=== PATIENT | female | born 1990 | race American Indian/Alaskan Native ===

== ENCOUNTER 2016-08-28 11:35 | Emergency (ER) | payer MEDICAID ==
[2016-08-28 12:41] LABS: Basophils % (Auto) 0.6 % (0.0-1.8); Eosinophils % (Auto) 8.7 % (0.0-4.3); Hemoglobin 12.7 gm/dl (10.1-14.3); Mean Corpuscular HGB Conc 32 % (30-34); Mean Corpuscular Volume 76 fl (79-97); Platelet Count 266 K/mm3 (140-440); Red Blood Count 5.28 M/mm3 (3.65-5.03); Red Cell Distribution Width 15.4 % (13.2-15.2); White Blood Count 5.7 K/mm3 (4.5-11.0)
[2016-08-28 12:52] LABS: Bilirubin,Urine NEG (Negative); Blood,Urine SM (Negative); Ketones,Urine NEG (Negative); Leukocyte Esterase,Urine NEG (Negative); Mucus,Urine FEW /HPF; Nitrite,Urine NEG (Negative); Protein,Urine <15 mg/dL mg/dL (Negative); Urobilinogen,Urine < 2.0 mg/dL (<2.0)
[2016-08-28 12:53] LABS: Alanine Aminotransferase 36 units/L (7-56); Albumin/Globulin Ratio 1.1 %; Alkaline Phosphatase 79 units/L (35-129); Anion Gap 17 mmol/L; BUN/Creatinine Ratio 14.28; Bilirubin,Total 0.2 mg/dL (0.1-1.2); Blood Urea Nitrogen 10 mg/dL (7-17); Calcium 8.4 mg/dL (8.4-10.2); Carbon Dioxide 22 mmol/L (22-30); Chloride 105.1 mmol/L (98-107); Glucose 111 mg/dL (65-100); Potassium 3.5 mmol/L (3.6-5.0); Sodium 141 mmol/L (137-145); Total Protein 7.6 g/dL (6.3-8.2)
[2016-08-28 12:59] LABS: Mean Corpuscular Hemoglobin 24 pg (28-32)
--- NOTE | 2016-08-28 13:36 | XRay Report ---
Single view chest: Compared to 04/14/14. History: Asthma. Findings: Normal cardiomediastinal silhouette. Trachea is midline. No consolidation, pneumothorax or pleural effusion. Impression: No acute cardiopulmonary findings. Impression:
[2016-08-28] MEDS ORDERED: PROVENTIL IH ONE (14:07)
--- NOTE | 2016-08-28 14:07 | Emergency Department Report ---
ED General Adult HPI - General Chief complaint: Adult Asthma Stated complaint: ASTHMA ATTACK Time Seen by Provider: 08/28/16 13:54 Source: family, EMS (ems notes not available at time of chart dictation. Verbal report received from EMS.), RN notes reviewed Mode of arrival: Stretcher Limitations: No Limitations - History of Present Illness Initial comments: This is a 25-year-old female. She is previously unknown to me. Her identity access management architect is Dr. Martinez. She has a past medical history of asthma. She presents to the ER with asthma exacerbation. EMS gave the patient albuterol, steroids, magnesium sulfate. Patient reports taking steroids every other day. She does not recall the dose of steroid. She is not having any pain at this time. There is no leg pain. There is no leg swelling. No recent trips greater than 4 hours. No recent hospital admissions. Patient does not take control tablets. She reports that she feels markedly improved at this time. Triggers for asthma include cold weather, change of seasons, increasing pollen count. She reports her symptoms are markedly improved with administration of albuterol, steroids, magnesium. -: Gradual Severity scale (0 -10): 5 Consistency: now resolved Improves with: medication Associated Symptoms: shortness of breath - Related Data Home Medications Medication Instructions Recorded Confirmed Last Taken Prednisone [Prednisone 10 mg 10 mg PO QDAY 08/28/16 08/28/16 1 Day Ago (6-Day Pack, 21 Tabs)] Previous Rx's Medication Instructions Recorded Last Taken Type Pnv95/Ferrous Fumarate/FA 1 each PO QDAY #90 tablet 10/16/13 06/07/14 Rx [ Vitamins] one ALBUTEROL Inhaler [ProAir HFA 2 puff IH QID PRN #1 inhalation 04/09/14 1 Day Ago Rx Inhaler] ALBUTEROL NEB's [Proventil 0.083% 2.5 mg IH TID PRN #1 box 04/09/14 08/28/16 Rx NEBS] Albuterol Sulfate [Albuterol 0.63%] 0.63 mg IH TID PRN #1 box 04/15/14 08/28/16 Rx Ipratropium/Albuterol Sulfate 3 ml IH TID PRN #1 box 04/15/14 1 Day Ago Rx [Iprat-Albut 0.5-3(2.5) mg/3 ml] Albuterol Sulfate [Albuterol 0.63% 0.63 mg IH Q4HR PRN #2 ml 08/28/16 Unknown Rx NEBS] Albuterol Sulfate [Proair 90 mcg IH Q4HR PRN #2 aer.pow.ba 08/28/16 Unknown Rx Respiclick] Ipratropium [place] [Atrovent Hfa] 12.9 gm IH Q4HR #2 hfa.aer.ad 08/28/16 Unknown Rx Ipratropium [Atrovent NEB] 0.5 mg IH Q4HR #2 ml 08/28/16 Unknown Rx Nebulizer/Compressor [Innospire 1 each MC PRN PRN #1 each 08/28/16 Unknown Rx Deluxe Jacki Neb] methylPREDNISolone [Medrol] 4 mg PO QDAY #1 tab.ds.pk 08/28/16 Unknown Rx Allergies Allergy/AdvReac Type Severity Reaction Status Date / Time water melon Allergy Itching Uncoded 05/02/14 17:15 ED Review of Systems ROS: Stated complaint: ASTHMA ATTACK Other details as noted in HPI Constitutional: denies: malaise Eyes: denies: vision change ENT: congestion. denies: epistaxis Respiratory: shortness of breath, wheezing Cardiovascular: dyspnea on exertion Gastrointestinal: denies: abdominal pain, nausea, diarrhea Genitourinary: denies: urgency, dysuria, discharge Musculoskeletal: denies: back pain, joint swelling, arthralgia Skin: denies: rash, lesions Neurological: denies: headache, weakness, paresthesias Psychiatric: denies: anxiety, depression ED Past Medical Hx - Past Medical History Previous Medical History?: Yes Hx Hypertension: No Hx Congestive Heart Failure: No Hx Diabetes: No Hx Deep Vein Thrombosis: No Hx Renal Disease: No Hx Sickle Cell Disease: No Hx Seizures: No Hx Asthma: Yes Hx COPD: No Hx HIV: No Additional medical history: 4 mos , constipation x1 month - Social History Smoking Status: Never Smoker Substance Use Type: None - Medications Home Medications: Home Medications Medication Instructions Recorded Confirmed Last Taken Type Pnv95/Ferrous Fumarate/FA 1 each PO QDAY #90 tablet 10/16/13 08/28/16 06/07/14 Rx [ Vitamins] one ALBUTEROL Inhaler [ProAir HFA 2 puff IH QID PRN #1 inhalation 04/09/14 08/28/16 1 Day Ago Rx Inhaler] ALBUTEROL NEB's [Proventil 0.083% 2.5 mg IH TID PRN #1 box 04/09/14 08/28/1606/15 Rx NEBS] Albuterol Sulfate [Albuterol 0.63%] 0.63 mg IH TID PRN #1 box 04/15/14 08/28/16 08/28/16 Rx Ipratropium/Albuterol Sulfate 3 ml IH TID PRN #1 box 04/15/14 08/28/16 1 Day Ago Rx [Iprat-Albut 0.5-3(2.5) mg/3 ml] Albuterol Sulfate [Albuterol 0.63% 0.63 mg IH Q4HR PRN #2 ml 08/28/16 Unknown Rx NEBS] Albuterol Sulfate [Proair 90 mcg IH Q4HR PRN #2 aer.pow.ba 08/28/16 Unknown Rx Respiclick] Ipratropium [place] [Atrovent Hfa] 12.9 gm IH Q4HR #2 hfa.aer.ad 08/28/16 Unknown Rx Ipratropium [Atrovent NEB] 0.5 mg IH Q4HR #2 ml 08/28/16 Unknown Rx Nebulizer/Compressor [Innospire 1 each MC PRN PRN #1 each 08/28/16 Unknown Rx Deluxe Jacki Neb] Prednisone [Prednisone 10 mg 10 mg PO QDAY 08/28/16 08/28/16 1 Day Ago History (6-Day Pack, 21 Tabs)] methylPREDNISolone [Medrol] 4 mg PO QDAY #1 tab.ds.pk 08/28/16 Unknown Rx ED Physical Exam - General Limitations: No Limitations General appearance: alert, in no apparent distress - Head Head exam: Present: atraumatic, normocephalic - Eye Eye exam: Present: normal appearance, EOMI. Absent: nystagmus - ENT ENT exam: Present: normal exam, normal orophraynx, mucous membranes moist, normal external ear exam - Neck Neck exam: Present: normal inspection, full ROM. Absent: tenderness, meningismus - Respiratory Respiratory exam: Present: wheezes. Absent: respiratory distress, chest wall tenderness - Cardiovascular Cardiovascular Exam: Present: normal rhythm, tachycardia, normal heart sounds. Absent: systolic murmur, diastolic murmur, rubs, gallop - GI/Abdominal GI/Abdominal exam: Present: soft, normal bowel sounds. Absent: distended, tenderness, guarding, rebound, rigid, pulsatile mass - Extremities Exam Extremities exam: Present: normal inspection, full ROM, normal capillary refill. Absent: tenderness, pedal edema, joint swelling, calf tenderness - Back Exam Back exam: Present: normal inspection, full ROM. Absent: tenderness, CVA tenderness (R), CVA tenderness (L), muscle spasm, paraspinal tenderness, vertebral tenderness - Neurological Exam Neurological exam: Present: alert, oriented X3, normal gait, other (Extraocular movements intact. Tongue midline. No facial droop. Facial sensation intact to light touch in the V1, V2, V3 distribution bilaterally. 5 and 5 strength in 4 extremities.. Sensation is intact to light touch in 4 extremities.). Absent : motor sensory deficit - Psychiatric Psychiatric exam: Present: normal affect, normal mood - Skin Skin exam: Present: warm, dry, intact, normal color. Absent: rash ED Course Vital Signs 08/28/16 11:37 Temperature 97.9 F Pulse Rate 124 H Respiratory 24 Rate Blood Pressure 146/93 Blood Pressure 146/93 [Right] O2 Sat by Pulse 99 Oximetry - Reevaluation(s) Reevaluation #1: 08/28/16 15:20 differential diagnosis: Asthma exacerbation, bronchitis, pneumonia assessment anD plan: 25-year-old female, with no pulmonary embolus or DVT risk factors, low risk by well's criteria, known history of chronic asthma, on chronic steroid therapy, who presents with her typical asthma exacerbation. She is afebrile with reassuring vital signs. When I'm interviewing the patient , she is texting on a cellular phone, and she is able to ambulate around the ER while talking to me simultaneously without desaturation. She felt markedly improved after appropriate asthma therapy. She reports that she has follow-up with her identity access management architect this Tuesday. She will be discharged on a Medrol Dosepak ED Medical Decision Making - Lab Data Result diagrams: 08/28/16 12:18 08/28/16 12:18 Vital Signs 08/28/16 08/28/16 11:37 15:22 Temperature 97.9 F 98.6 F Pulse Rate 124 H 94 H Respiratory 24 20 Rate Blood Pressure 146/93 Blood Pressure 146/93 141/88 [Right] O2 Sat by Pulse 99 99 Oximetry Lab Results 08/28/16 08/28/16 08/28/16 Range/Units 12:17 12:18 12:18 WBC 5.7 (4.5-11.0) K/mm3 RBC 5.28 H (3.65-5.03) M/mm3 Hgb 12.7 (10.1-14.3) gm/dl Hct 40.0 (30.3-42.9) % MCV 76 L (79-97) fl MCH 24 L (28-32) pg MCHC 32 (30-34) % RDW 15.4 H (13.2-15.2) % Plt Count 266 (140-440) K/mm3 Lymph % (Auto) 36.9 H (13.4-35.0) % [place] % (Auto) 6.7 (0.0-7.3) % Eos % (Auto) 8.7 H (0.0-4.3) % Baso % (Auto) 0.6 (0.0-1.8) % Lymph # 2.1 (1.2-5.4) K/mm3 [place] # 0.4 (0.0-0.8) K/mm3 Eos # 0.5 H (0.0-0.4) K/mm3 Baso # 0.0 (0.0-0.1) K/mm3 Seg Neutrophils % 47.1 (40.0-70.0) % Seg Neutrophils # 2.7 (1.8-7.7) K/mm3 Sodium 141 (137-145) mmol/L Potassium 3.5 L (3.6-5.0) mmol/L Chloride 105.1 (98-107) mmol/L Carbon Dioxide 22 (22-30) mmol/L Anion Gap 17 mmol/L BUN 10 (7-17) mg/dL Creatinine 0.7 (0.7-1.2) mg/dL Estimated GFR > 60 ml/min BUN/Creatinine Ratio 14.28 % Glucose 111 H (65-100) mg/dL Calcium 8.4 (8.4-10.2) mg/dL Total Bilirubin 0.2 (0.1-1.2) mg/dL AST 22 (5-40) units/L ALT 36 (7-56) units/L Alkaline Phosphatase 79 (35-129) units/L Total Protein 7.6 (6.3-8.2) g/dL Albumin 4.0 (3.9-5) g/dL Albumin/Globulin Ratio 1.1 % Urine Color Yellow (Yellow) Urine Turbidity Slightly-cloudy (Clear) Urine pH 5.0 (5.0-7.0) Ur Specific [place] 1.011 (1.003-1.030) Urine Protein <15 mg/dl (Negative) mg/dL Urine Glucose (UA) Neg (Negative) mg/dL Urine Ketones Neg (Negative) mg/dL Urine Blood Sm (Negative) Urine Nitrite Neg (Negative) Urine Bilirubin Neg (Negative) Urine Urobilinogen < 2.0 (<2.0) mg/dL Ur Leukocyte Esterase Neg (Negative) Urine WBC (Auto) 1.0 (0.0-6.0) /HPF Urine RBC (Auto) 1.0 (0.0-6.0) /HPF U Epithel Cells (Auto) 16.0 H (0-13.0) /HPF Urine Mucus Few /HPF Urine HCG, Qual Negative (Negative) - EKG Data -: EKG Interpreted by In EKG shows normal: sinus rhythm, axis, QRS complexes, ST-T waves Rate: tachycardia - EKG Data 08/28/16 15:23 sinus tachycardia, 106 bpm, normal axis, not consistent with STEMI, unremarkable EKG. QTC prolonged at 472 ms. - Radiology Data Radiology results: report reviewed, image reviewed X-ray of the chest is negative for acute disease. Critical care attestation.: If time is entered above; I have spent that time in minutes in the direct care of this critically ill patient, excluding procedure time. ED Disposition Clinical Impression: Asthma exacerbation Disposition: DISCHARGED TO HOME OR SELFCARE Is pt being admited?: No Does the pt Need Aspirin: No Condition: Stable Instructions: Asthma (ED) Additional Instructions: Used the albuterol and Atrovent every 4-6 hours for the next 5 days. Take the steroid blister pack as directed. Follow up with her identity access management architect on Tuesday as scheduled. Return to the ER right away with severe shortness of breath, intractable nausea or vomiting, fevers or chills, inability to tolerate liquid feeds, worsening shortness of breath, new, worsening or different symptoms. Referrals: PRIMARY CARE,MD [Primary Care Provider] - 3-5 Days DAMARIS DOMINIQUE MD [Staff Physician] - 3-5 Days
[2016-08-28 15:23] VITALS: BP 141/88
== END 2016-08-28 15:35 | disposition home or self-care (01) ==
LOC: ED 11:35
DX: J45.901 Unspecified asthma with (acute) exacerbation (principal); Z91.018 Allergy to other foods
CPT/HCPCS: 36415; 71010; 80053; 81001; 81025; 85025; 93005; 93010

== ENCOUNTER 2016-11-09 21:09 | Emergency (ER) | payer MEDICAID ==
[2016-11-09 21:35] VITALS: BP 130/86
== END 2016-11-09 23:31 | disposition left against medical advice (07) ==
LOC: ED 21:09
DX: J02.9 Acute pharyngitis, unspecified (principal); R05 Cough; J45.909 Unspecified asthma, uncomplicated; Z91.018 Allergy to other foods; Z53.21 Procedure and treatment not carried out due to patient leaving prior to being seen by health care provider

== ENCOUNTER 2017-03-26 21:55 | Outpatient (CLI) | payer MEDICAID ==
[2017-03-26] MEDS ORDERED: LACTATED RINGERS 500 ML IV ONE (22:06)
[2017-03-26 23:01] LABS: Bacteria,Urine 1+ /HPF (Negative); Bilirubin,Urine SM (Negative); Blood,Urine NEG (Negative); Ketones,Urine TR mg/dL (Negative); Leukocyte Esterase,Urine NEG (Negative); Mucus,Urine 3+ /HPF; Nitrite,Urine NEG (Negative)
[2017-03-26 23:15] VITALS: BP 124/73
--- NOTE | 2017-03-27 09:22 | Ultrasound Report ---
OB sonogram: History: Cervical alignment. Gestation: Single Position: Breech Amniotic Fluid: MEMO = normal cm Placenta: Anterior Placental Grade: 0 Heart Rate: 160 BPM Cervical length: 3.7 cm (Normal > 3 cm) It is too early for a anatomical survey BPD: 5.1 cm = 21 w 3 d HC: 19.1 cm = 21 w 3 d AC: 519 cm = 21 w 0 d FL: 3.4 cm = 20 w 5 d HC/AC Ratio: 1.2 Estimated Weight: 413 grams US Gest. Age = 21 w 0 d EDC: 08/06/17
== END 2017-03-26 23:27 | disposition home or self-care (01) ==
LOC: TRG 21:55
PROVIDERS: ATTEND Obstetrics & Gynecology
DX: O32.1XX0 Maternal care for breech presentation, not applicable or unspecified (principal); O47.02 False labor before 37 completed weeks of gestation, second trimester; Z3A.21 21 weeks gestation of pregnancy
CPT/HCPCS: 76816; 81001

== ENCOUNTER 2017-04-23 19:21 | Emergency (ER) | payer MEDICAID ==
[2017-04-23 19:59] VITALS: BP 125/92
[2017-04-23] MEDS ORDERED: DUONEB *Not for PRN Use IH ONE (20:03)
[2017-04-23] MEDS ORDERED: PROVENTIL IH ONE (20:13)
--- NOTE | 2017-04-23 20:16 | Emergency Department Report ---
Chief Complaint: Adult Asthma Stated Complaint: DIFFICULTY IN BREATHING - HPI History of Present Illness: 26-year-old female past medical history asthma, approximately 6 months presents with complaint of shortness of breath and wheezing since earlier today. Patient speaking in broken sentences states she feels short of breath. Denies chest pain or palpitations at this time. States she used her nebulizer at home with minimal relief of her asthma. - ROS Review of Systems: 6 months , currently wheezing history of asthma exacerbations - Exam Vital Signs: Vital Signs 04/23/17 19:55 Temperature 99.3 F Pulse Rate 111 H Respiratory 18 Rate Blood Pressure 125/92 O2 Sat by Pulse 98 Oximetry Physical Exam: Active wheezing bilateral lung jones, gravid abdomen, awake alert 9 to 3 MSE screening note: Focused history and physical exam performed. Due to findings the following was ordered: Screening Assessment/Plan/Differential Dx: Acute asthma exacerbation, wheezing 1- This initial assessment/diagnostic orders/clinical plan/ treatment(s) is/are subject to change based on pt's health status, clinical progression and re- assessment by fellow clinical providers in the ED. Further treatment and workup at subsequent clinical provers discretion. Patient/guardians urged not to elope from ED as their condition may be serious if not clinically assessed and managed. 2-albuterol nebulizer, DuoNeb, IV Solu-Medrol ( can be used in women, cat C, this clinical scenario calls for steroids as pt is heavily wheezing) 3-I briefly discussed case with Dr. Go, pt uptriaged to main ED, resp therapist called for neb tx ED Disposition for MSE Condition: Stable
--- NOTE | 2017-04-23 20:41 | Emergency Department Report ---
ED Shortness of Breath HPI - General Chief Complaint: Adult Asthma Stated Complaint: DIFFICULTY IN BREATHING Time Seen by Provider: 04/23/17 20:28 Source: patient Mode of arrival: Ambulatory Limitations: No Limitations - History of Present Illness Initial Comments: Patient is a 26-year-old female with a past medical history of asthma that presents to the ER with complaints of shortness of breath and cough 3 days with his worsening for the last 24 hours. Patient states that she states as of today she is not getting any relief from her nebulizer at home. Patient is currently 25 weeks. Patient states every winter she gets a bad asthma flare of that requires ER care and hospitalization. She states that her last flareup last winter required multiple nebulizers and magnesium. Patient denies fever and chills and chest pain. MD Complaint: shortness of breath, cough, "asthma attack" -: Gradual, days(s) Severity: severe Consistency: constant Improves With: nothing Worsens With: lying flat, exertion, movement, coughing, inspiration Known History Of: asthma Associated Symptoms: cough, sputum production Treatments Prior to Arrival: bronchodilator - Related Data Home Oxygen Therapy: No Home Medications Medication Instructions Recorded Confirmed Last Taken Prednisone [Prednisone 10 mg 10 mg PO QDAY 08/28/16 08/28/16 1 Day Ago (6-Day Pack, 21 Tabs)] ~08/27/16 Previous Rx's Medication Instructions Recorded Last Taken Type Pnv95/Ferrous Fumarate/FA 1 each PO QDAY #90 tablet 10/16/13 06/07/14 Rx [ Vitamins] one ALBUTEROL Inhaler [ProAir HFA 2 puff IH QID PRN #1 inhalation 04/09/14 1 Day Ago Rx Inhaler] ~08/27/16 ALBUTEROL NEB's [Proventil 0.083% 2.5 mg IH TID PRN #1 box 04/09/14 08/28/16 Rx NEBS] Albuterol Sulfate [Albuterol 0.63%] 0.63 mg IH TID PRN #1 box 04/15/14 08/28/16 Rx Ipratropium/Albuterol Sulfate 3 ml IH TID PRN #1 box 04/15/14 1 Day Ago Rx [Iprat-Albut 0.5-3(2.5) mg/3 ml] ~08/27/16 Albuterol Sulfate [Albuterol 0.63% 0.63 mg IH Q4HR PRN #2 ml 08/28/16 Unknown Rx NEBS] Albuterol Sulfate [Proair 90 mcg IH Q4HR PRN #2 aer.pow.ba 08/28/16 Unknown Rx Respiclick] Ipratropium [place] [Atrovent Hfa] 12.9 gm IH Q4HR #2 hfa.aer.ad 08/28/16 Unknown Rx Ipratropium [Atrovent NEB] 0.5 mg IH Q4HR #2 ml 08/28/16 Unknown Rx Nebulizer and Compressor 1 each MC PRN PRN #1 each 08/28/16 Unknown Rx [Innospire Deluxe Jacki Neb] methylPREDNISolone [Medrol] 4 mg PO QDAY #1 tab.ds.pk 08/28/16 Unknown Rx Allergies Allergy/AdvReac Type Severity Reaction Status Date / Time water melon Allergy Itching Uncoded 05/02/14 17:15 ED Review of Systems ROS: Stated complaint: DIFFICULTY IN BREATHING Other details as noted in HPI Comment: All other systems reviewed and negative Constitutional: no symptoms reported Eyes: as per HPI ENT: as per HPI Respiratory: cough, shortness of breath, SOB with exertion, SOB at rest, wheezing Cardiovascular: as per HPI Endocrine: no symptoms reported Gastrointestinal: as per HPI Genitourinary: as per HPI Musculoskeletal: as per HPI Skin: as per HPI Neurological: as per HPI Psychiatric: as per HPI Hematological/Lymphatic: as per HPI ED Past Medical Hx - Past Medical History Hx Hypertension: No Hx Congestive Heart Failure: No Hx Diabetes: Yes (GDM 2010, Diet controlled) Hx Deep Vein Thrombosis: No Hx Renal Disease: No Hx Sickle Cell Disease: No Hx Seizures: No Hx Asthma: Yes (PRN, Last use this a.m.) Hx COPD: No Hx HIV: No Additional medical history: 4 mos , constipation x1 month - Social History Smoking Status: Never Smoker Substance Use Type: None - Medications Home Medications: Home Medications Medication Instructions Recorded Confirmed Last Taken Type Pnv95/Ferrous Fumarate/FA 1 each PO QDAY #90 tablet 10/16/13 08/28/16 06/07/14 Rx [ Vitamins] one ALBUTEROL Inhaler [ProAir HFA 2 puff IH QID PRN #1 inhalation 04/09/14 08/28/16 1 Day Ago Rx Inhaler] ~08/27/16 ALBUTEROL NEB's [Proventil 0.083% 2.5 mg IH TID PRN #1 box 04/09/14 08/28/1606/15 Rx NEBS] Albuterol Sulfate [Albuterol 0.63%] 0.63 mg IH TID PRN #1 box 04/15/14 08/28/16 08/28/16 Rx Ipratropium/Albuterol Sulfate 3 ml IH TID PRN #1 box 04/15/14 08/28/16 1 Day Ago Rx [Iprat-Albut 0.5-3(2.5) mg/3 ml] ~08/27/16 Albuterol Sulfate [Albuterol 0.63% 0.63 mg IH Q4HR PRN #2 ml 08/28/16 Unknown Rx NEBS] Albuterol Sulfate [Proair 90 mcg IH Q4HR PRN #2 aer.pow.ba 08/28/16 Unknown Rx Respiclick] Ipratropium [place] [Atrovent Hfa] 12.9 gm IH Q4HR #2 hfa.aer.ad 08/28/16 Unknown Rx Ipratropium [Atrovent NEB] 0.5 mg IH Q4HR #2 ml 08/28/16 Unknown Rx Nebulizer and Compressor 1 each MC PRN PRN #1 each 08/28/16 Unknown Rx [Innospire Deluxe Jacki Neb] Prednisone [Prednisone 10 mg 10 mg PO QDAY 08/28/16 08/28/16 1 Day Ago History (6-Day Pack, 21 Tabs)] ~08/27/16 methylPREDNISolone [Medrol] 4 mg PO QDAY #1 tab.ds.pk 08/28/16 Unknown Rx ED Physical Exam - General Limitations: No Limitations General appearance: alert - Head Head exam: Present: atraumatic, normocephalic - Eye Eye exam: Present: normal appearance, PERRL, EOMI - ENT ENT exam: Present: mucous membranes dry - Neck Neck exam: Present: normal inspection - Respiratory Respiratory exam: Present: respiratory distress, wheezes, rhonchi, accessory muscle use - Cardiovascular Cardiovascular Exam: Present: regular rate, normal rhythm. Absent: systolic murmur, diastolic murmur, rubs, gallop - GI/Abdominal GI/Abdominal exam: Present: soft, distended, normal bowel sounds, other (gravid abdomen) - Extremities Exam Extremities exam: Present: normal inspection - Back Exam Back exam: Present: normal inspection - Neurological Exam Neurological exam: Present: alert, oriented X3 - Psychiatric Psychiatric exam: Present: normal affect, normal mood - Skin Skin exam: Present: warm, dry, intact, normal color. Absent: rash ED Course Vital Signs 04/23/17 04/23/17 04/23/17 19:55 20:16 21:22 Temperature 99.3 F Pulse Rate 111 H Pulse Rate [ 99 H 98 H Bilateral Bases ] Respiratory 18 Rate Respiratory 18 18 Rate [Bilateral Bases] Blood Pressure 125/92 O2 Sat by Pulse 98 Oximetry - Reevaluation(s) Reevaluation #1: 04/23/17 2100. Patient states she is feeling a little bit better. Patient still has wheezes. Retractions have improved. Patient agreed to plan of admission for observation. ED Medical Decision Making - Lab Data Result diagrams: 04/23/17 20:26 04/23/17 20:26 - Medical Decision Making 26-year-old female presented with shortness of breath and acute asthma exacerbation. Will admit patient for observation. Consult the patient's OB/ HEALTH CONSULTANT Dr. Logan. Dr. Logan made aware of admitting patient to medicine floor. will consult hospitalist for admission. Hospitalist agreed to admit - Differential Diagnosis acute asthma exacerbation. Bronchitis. Shortness of breath, Critical care attestation.: If time is entered above; I have spent that time in minutes in the direct care of this critically ill patient, excluding procedure time. ED Disposition Clinical Impression: Bronchial asthma, Acute bronchitis, Asthma exacerbation, Disposition: OP ADMIT IP TO THIS HOSP Is pt being admited?: Yes Does the pt Need Aspirin: No Condition: Serious Time of Disposition: 22:49
[2017-04-23] MEDS ORDERED: MAGNESIUM SULFATE 2GM/50ML 2 GM/50 ML BAG IV ONE (20:42)
[2017-04-23 20:43] LABS: Basophils % (Auto) 0.5 % (0.0-1.8); Eosinophils % (Auto) 6.7 % (0.0-4.3); Hematocrit 32.1 % (30.3-42.9); Hemoglobin 10.3 gm/dl (10.1-14.3); Mean Corpuscular HGB Conc 32 % (30-34); Mean Corpuscular Volume 80 fl (79-97); Platelet Count 296 K/mm3 (140-440); Red Blood Count 4.04 M/mm3 (3.65-5.03); Red Cell Distribution Width 14.5 % (13.2-15.2); White Blood Count 9.2 K/mm3 (4.5-11.0)
[2017-04-23 20:51] LABS: Mean Corpuscular Hemoglobin 26 pg (28-32)
[2017-04-23 21:04] LABS: Anion Gap 17 mmol/L; BUN/Creatinine Ratio 10; Blood Urea Nitrogen 4 mg/dL (7-17); Carbon Dioxide 21 mmol/L (22-30); Chloride 104.3 mmol/L (98-107); Glucose 86 mg/dL (65-100); Potassium 3.7 mmol/L (3.6-5.0); Sodium 139 mmol/L (137-145)
--- NOTE | 2017-04-23 23:36 | Event Note ---
Date: 04/23/17 Hospitalist consult for admission. Hospitalist went in to see patient, dr romo , and patient refuses admission to hospital. Risk explained to patient. Patient voiced understanding of risks. Patient signed AMA.
== END 2017-04-24 02:34 | disposition admitted as inpatient to this hospital (09) ==
LOC: ED 19:21
DX: O99.512 Diseases of the respiratory system complicating pregnancy, second trimester (principal); J45.901 Unspecified asthma with (acute) exacerbation; E11.9 Type 2 diabetes mellitus without complications; Z3A.25 25 weeks gestation of pregnancy
CPT/HCPCS: 36415; 80048; 83735; 85025; 96365; 96366; 96375; 99284; J2930; J3475

== ENCOUNTER 2017-06-09 13:11 | Outpatient (CLI) | payer MEDICAID ==
[2017-06-09 14:42] LABS: Bacteria,Urine 1+ /HPF (Negative); Bilirubin,Urine NEG (Negative); Blood,Urine NEG (Negative); Color,Urine Yellow (Yellow); Mucus,Urine 2+ /HPF; Nitrite,Urine NEG (Negative)
--- NOTE | 2017-06-09 15:36 | Ultrasound Report ---
FINAL REPORT EXAM: US OB LIMITED HISTORY: Leaking fluid , 32 week gestational age by history TECHNIQUE: Ultrasound evaluation of the gravid uterus PRIORS: None. FINDINGS: The quantity of visualized amniotic fluid appears grossly normal on this limited evaluation. Heart rate: 139 beats per minute position: Cephalic Amniotic fluid index: 15.9cm IMPRESSION: Amniotic fluid index within normal limits
== END 2017-06-09 16:11 | disposition home or self-care (01) ==
LOC: TRG 13:11
PROVIDERS: ATTEND Obstetrics & Gynecology
DX: O42.92 Full-term premature rupture of membranes, unspecified as to length of time between rupture and onset of labor (principal); Z3A.32 32 weeks gestation of pregnancy
CPT/HCPCS: 36415; 76815; 81001; 82731

== ENCOUNTER 2017-08-03 04:49 | Outpatient (CLI) | payer MEDICAID ==
[2017-08-03 05:10] VITALS: BP 119/70
== END 2017-08-03 05:30 | disposition home or self-care (01) ==
LOC: TRG 04:49
PROVIDERS: ATTEND Obstetrics & Gynecology
DX: O62.9 Abnormality of forces of labor, unspecified (principal); Z3A.39 39 weeks gestation of pregnancy
CPT/HCPCS: 59025

== ENCOUNTER 2017-08-10 11:48 | Outpatient (CLI) | payer MEDICAID ==
[2017-08-10 12:24] VITALS: BP 130/73
[2017-08-10] MEDS ORDERED: VISTARIL PO PRN (12:52)
== END 2017-08-10 13:11 | disposition home or self-care (01) ==
LOC: TRG 11:48
PROVIDERS: ATTEND Obstetrics & Gynecology
DX: O48.0 Post-term pregnancy (principal); Z3A.40 40 weeks gestation of pregnancy
CPT/HCPCS: 59025; Q0177

== ENCOUNTER 2018-06-28 12:24 | Outpatient (CLI) | payer MEDICAID ==
[2018-06-28 13:46] LABS: Bilirubin,Urine NEG (Negative); Blood,Urine NEG (Negative); Color,Urine Yellow (Yellow); Mucus,Urine 2+ /HPF
[2018-06-28 13:47] LABS: Hematocrit 24.3 % (30.3-42.9); Hemoglobin 7.4 gm/dl (10.1-14.3); Mean Corpuscular HGB Conc 30 % (30-34); Platelet Count 279 K/mm3 (140-440); Red Blood Count 3.66 M/mm3 (3.65-5.03); Red Cell Distribution Width 18.3 % (13.2-15.2)
[2018-06-28 13:48] LABS: Mean Corpuscular Volume 66 fl (79-97)
[2018-06-28 14:04] LABS: Uric Acid 3.4 mg/dL (3.5-7.6)
[2018-06-28 14:18] VITALS: BP 128/71
== END 2018-06-28 14:54 | disposition home or self-care (01) ==
LOC: TRG 12:24
PROVIDERS: ATTEND Obstetrics & Gynecology
DX: O47.03 False labor before 37 completed weeks of gestation, third trimester (principal); O24.419 Gestational diabetes mellitus in pregnancy, unspecified control; O99.513 Diseases of the respiratory system complicating pregnancy, third trimester; J45.909 Unspecified asthma, uncomplicated; Z3A.37 37 weeks gestation of pregnancy
CPT/HCPCS: 36415; 59025; 81001; 83615; 84450; 84460; 84550; 85027

== ENCOUNTER 2018-07-19 11:00 | Inpatient (IN) | payer MEDICAID ==
[2018-07-19] MEDS ORDERED: ZOFRAN IV PRN (12:04)
[2018-07-19] MEDS ORDERED: NORCO 5/325 PO PRN (12:04)
--- NOTE | 2018-07-19 12:09 | History and Physical Report ---
History of Present Illness Date of examination: 07/19/18 Date of admission: 07/19/18 Chief complaint: headache, blurry vision History of present illness: Pt seen in the office today for post op check. She is POD #9 from repeat c/s with BTL. Pt noted to have blood pressures that were 140s/100s that were several minutes apart. Pt states that she has had the headache for the last two days. 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 She is admitted for MgSO4, PIH labs and bp meds if needed. UA in the office showed no protein. EDC Confirmation: 07/17/2018 Gestational Age: 25 4/7 weeks Past History : 6 Term Births: 3 Premature Births: 0 Living Children: 3 Para: 3 Mult. Births: 0 Prev : 1 Aborta: 2 Elect. Ab: 1 Spont. Ab: 1 Ectopics: 0 # 1 Delivery date: 2008 Delivery type: EAB # 2 Delivery date: 04/15/2011 Weeks Gestation: 39 Delivery type: Delivery location: [place] Sex: Male weight: 7-6 Name: Brenda # 3 Delivery date: 2012 Delivery type: SAB Comments: 7 weeks D&C # 4 Delivery date: 06/08/2014 Weeks Gestation: 38.6 Delivery type: Vaginal Anesthesia type: none Delivery location: [facility] Sex: male weight: 7.44 Comments: MILD SHOULDER DYSTOCIA(<30 sec) # 5 Delivery date: 08/11/2017 Weeks Gestation: 40 Delivery type: Anesthesia type: epidural Delivery location: [facility] Infant Sex: Male weight: 8-5 Comments: CPD Past Medical History: Reviewed history from 12/19/2013 and no changes required: asthma Past Surgical History: D&C (08/11/2017) Past Medical History Surgery (Non-dish carrier): D&C (08/11/2017) Abnormal PAP: negative BRIAN Exposure: negative Infertility: negative Uterine Anomaly: negative Uterine Surgery (not C/S): negative Other Gynecologic Problems: negative Social Hx: Patient is single Unemployed Smoking History: Patient has never smoked. 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) Family/Genetic History: other (see hpi) Social history: no significant social history, - Obstetrical History : 5 Para: 4 Hx # Term Pregnancies: 4 Spontaneous Abortions: 1 Number of Living Children: 4 Medications and Allergies Allergies Allergy/AdvReac Type Severity Reaction Status Date / Time avocado Allergy Anaphylaxis Verified 08/11/17 01:17 kiwi Allergy Anaphylaxis Verified 08/11/17 01:19 latex Allergy Anaphylaxis Verified 08/11/17 01:19 pistachio nut Allergy Anaphylaxis Verified 07/19/18 12:52 water melon Allergy Anaphylaxis Uncoded 08/11/17 01:17 Home Medications Medication Instructions Recorded Confirmed Last Taken Type Pnv95/Ferrous Fumarate/FA 1 each PO QDAY #90 tablet 10/16/13 07/11/18 07/09/18 Rx [ Vitamins] ALBUTEROL Inhaler (OR & NICU) 2 puff IH QID PRN #1 inhalation 04/09/14 07/11/18 1 Day Ago Rx [ProAir HFA Inhaler] ~08/27/16 ALBUTEROL NEB's [Proventil 0.083% 2.5 mg IH TID PRN #1 box 04/09/14 07/11/18 08/28/16 Rx NEBS] Albuterol Sulfate [Albuterol 0.63%] 0.63 mg IH TID PRN #1 box 04/15/14 07/11/18 08/28/16 Rx Ipratropium/Albuterol Sulfate 3 ml IH TID PRN #1 box 04/15/14 07/11/18 1 Day Ago Rx [Iprat-Albut 0.5-3(2.5) mg/3 ml] ~08/27/16 Albuterol Sulfate [Albuterol 0.63% 0.63 mg IH Q4HR PRN #2 ml 08/28/16 07/11/18 Unknown Rx NEBS] Albuterol Sulfate [Proair 90 mcg IH Q4HR PRN #2 aer.pow.ba 08/28/16 07/11/18 Unknown Rx Respiclick] Ipratropium [place] [Atrovent Hfa] 12.9 gm IH Q4HR #2 hfa.aer.ad 08/28/16 07/11/18 Unknown Rx Ipratropium [Atrovent NEB] 0.5 mg IH Q4HR #2 ml 08/28/16 07/11/18 Unknown Rx Nebulizer and Compressor 1 each MC PRN PRN #1 each 08/28/16 07/11/18 Unknown Rx [Innospire Deluxe Jacki Neb] Prednisone [Prednisone 10 mg 10 mg PO QDAY 08/28/16 07/11/18 1 Day Ago History (6-Day Pack, 21 Tabs)] ~08/27/16 methylPREDNISolone [Medrol] 4 mg PO QDAY #1 tab.ds.pk 08/28/16 07/11/18 Unknown Rx Ibuprofen [Motrin 800 MG tab] 800 mg PO Q8HR PRN #30 tablet 08/11/17 07/11/18 Unknown Rx Lidocain2.5%/Prilocai2.5% [Emla] 5 gm TP 1XW #1 tube 08/11/17 07/11/18 Unknown R x oxyCODONE /ACETAMINOPHEN [Percocet 1 - 2 tab PO Q4HR PRN #30 tab 08/11/17 07/11/18 Unknown Rx 5/325 mg] Docusate Sodium [Colace] 100 mg PO BID PRN #60 capsule 08/13/17 07/11/18 Unknown Rx Ferrous Sulfate [Feosol 325 MG tab] 325 mg PO BID #90 tablet 08/13/17 07/11/18 07/09/18 Rx Lidocain2.5%/Prilocai2.5% [Emla] 5 gm TP ONCE PRN #1 tube 08/13/17 07/11/18 Unknown Rx Docusate Sodium [Colace] 100 mg PO BID PRN #60 capsule 07/11/18 Unknown Rx Ferrous Sulfate 324 mg PO BID #60 tablet. 07/11/18 Unknown Rx Ibuprofen 800 mg PO Q6HR #30 tablet 07/11/18 Unknown Rx oxyCODONE /ACETAMINOPHEN [Percocet 1 tab PO Q4HR #30 tab 07/11/18 Unknown Rx 5/325] Review of Systems All systems: negative - Physical Exam Cardiovascular: Normal S1, Normal S2 Lungs: Positive: Clear to auscultation, Normal air movement Abdomen: Positive: normal appearance, soft. Negative: distention, tenderness, guarding Genitourinary (Female): Positive: other (deferred) Uterus: Positive: other (below umbilius) Extremities: Positive: normal. Negative: tenderness, edema Results Result Diagrams: 07/19/18 13:37 07/19/18 13:37 All other labs normal. Assessment and Plan - Patient Problems (1) hypertension Current Visit: Yes Status: Acute Plan to address problem: -BP on the magnesium has been in normal ranges only slightly elevated on admission. Will con't for at least 12 hours and then start to wean and monitor pt bps. Elevation may have been due to rest. PIH labs are normal except for 30 protein. This was not a cath specimen and could reflect the fact that the pt is having vaginal bleeding as she is only 1 week post op. -Pt refused cath will document urine as accurately as possible -plan of care d/w pt and all questions addressed and answered
[2018-07-19] MEDS ORDERED: MAGNESIUM SULFATE 40GM/1000ML 40 GM/1,000 ML BAG IV SCH (13:00)
[2018-07-19] MEDS ORDERED: LACTATED RINGERS 1,000 ML ONE ×2 (13:26→20:02)
[2018-07-19 14:09] LABS: Basophils # (Auto) 0.1 K/mm3 (0.0-0.1); Eosinophils # (Auto) 0.7 K/mm3 (0.0-0.4); Eosinophils % (Auto) 11.4 % (0.0-4.3); Monocytes # (Auto) 0.3 K/mm3 (0.0-0.8)
[2018-07-19 14:15] LABS: Basophils % (Auto) 1.4 % (0.0-1.8); Lymphocytes # (Auto) 1.9 K/mm3 (1.2-5.4); Lymphocytes % (Auto) 33.1 % (13.4-35.0); Mean Corpuscular HGB Conc 30 % (30-34); Platelet Count 497 K/mm3 (140-440); Red Blood Count 4.19 M/mm3 (3.65-5.03); Red Cell Distribution Width 19.6 % (13.2-15.2)
[2018-07-19 14:16] LABS: Hematocrit 27.9 % (30.3-42.9); Hemoglobin 8.3 gm/dl (10.1-14.3); Mean Corpuscular Volume 67 fl (79-97)
[2018-07-19 14:26] LABS: Alanine Aminotransferase 23 units/L (7-56); Albumin 3.7 g/dL (3.9-5); BUN/Creatinine Ratio 10; Blood Urea Nitrogen 6 mg/dL (7-17); Calcium 8.8 mg/dL (8.4-10.2); Hemolysis Index 6
[2018-07-19 15:58] LABS: Bilirubin,Urine NEG (Negative); Blood,Urine LG (Negative); Color,Urine Yellow (Yellow); Mucus,Urine 1+ /HPF; Urobilinogen,Urine < 2.0 mg/dL (<2.0)
[2018-07-19] MEDS: TYLENOL PO PRN (18:44)
--- NOTE | 2018-07-20 07:47 | Progress Note ---
Assessment and Plan patient resting, no complaints. reports GARCIA relieved by Tylenol. normotensive b/p's reviewed with . Plan to d/c mag and transfer patient to [facility] for continued monitoring. Plan discussed with patient, she verbalized understanding. - Patient Problems (1) hypertension Current Visit: Yes Status: Acute Subjective - Subjective Date of service: 07/20/18 Principal diagnosis: htn, POD 11 Patient reports: appetite normal, voiding normally, pain well controlled, ambulating normally, no dizzy ambulation, no nauseated Objective - Vital Signs Latest vital signs: Vital Signs Temp Pulse Resp BP 07/20/18 07:44 83 130/74 07/20/18 06:44 81 122/79 07/20/18 05:44 84 116/64 07/20/18 04:44 75 125/71 07/20/18 04:18 98.5 F 16 07/20/18 03:44 71 111/68 07/20/18 02:44 75 114/61 07/20/18 01:44 73 118/59 07/20/18 00:44 78 132/83 07/20/18 00:14 97.5 F L 16 07/19/18 23:44 77 123/69 07/19/18 22:44 76 126/75 07/19/18 21:44 83 120/67 07/19/18 21:01 98.4 F 18 07/19/18 20:47 88 136/74 07/19/18 19:44 86 121/69 07/19/18 18:44 90 119/73 07/19/18 17:44 86 130/74 07/19/18 17:00 99.4 F 16 07/19/18 16:44 75 101/51 07/19/18 15:18 83 122/64 07/19/18 14:47 86 125/77 07/19/18 14:17 75 139/84 07/19/18 14:11 80 138/86 07/19/18 13:04 75 136/83 07/19/18 12:54 99.6 F 16 07/19/18 12:49 70 133/82 Intake and Output 07/19/18 07/19/18 07/20/18 15:59 23:59 07:59 Output Total 100 1100 1800 Balance -100 -1100 -1800 Output: Urine 100 1100 1800 Void 100 1100 1800 Other: Total, Output Amount 100 900 800 # Voids Void 0 Weight 100.244 kg - Exam Breasts: Present: normal Cardiovascular: Present: Regular rate Lungs: Present: Clear to auscultation, Normal air movement Abdomen: Present: normal appearance, soft Vulva: both: normal Uterus: Present: normal Extremities: Present: normal Deep Tendon Reflex Grade: Normal +2 Incision: Present: normal, dry - Labs Labs: Abnormal lab results 07/19/18 07/19/18 07/19/18 Range/Units 13:37 13:37 13:37 Hgb 8.3 L (10.1-14.3) gm/dl Hct 27.9 L (30.3-42.9) % MCV 67 L (79-97) fl MCH 20 L (28-32) pg RDW 19.6 H (13.2-15.2) % Plt Count 497 H (140-440) K/mm3 Eos % (Auto) 11.4 H (0.0-4.3) % Eos # 0.7 H (0.0-0.4) K/mm3 Potassium 3.3 L (3.6-5.0) mmol/L BUN 6 L (7-17) mg/dL Creatinine 0.6 L (0.7-1.2) mg/dL Magnesium (1.7-2.3) mg/dL Lactate Dehydrogenase 328 H (91-180) units/L Albumin 3.7 L (3.9-5) g/dL 07/20/18 07/20/18 Range/Units 00:33 05:51 Hgb (10.1-14.3) gm/dl Hct (30.3-42.9) % MCV (79-97) fl MCH (28-32) pg RDW (13.2-15.2) % Plt Count (140-440) K/mm3 Eos % (Auto) (0.0-4.3) % Eos # (0.0-0.4) K/mm3 Potassium (3.6-5.0) mmol/L BUN (7-17) mg/dL Creatinine (0.7-1.2) mg/dL Magnesium 5.50 H 6.10 H (1.7-2.3) mg/dL Lactate Dehydrogenase (91-180) units/L Albumin (3.9-5) g/dL
[2018-07-20] MEDS: TYLENOL PO PRN (08:13)
[2018-07-20 16:29] VITALS: BP 133/85
--- NOTE | 2018-07-20 17:17 | Discharge Summary ---
Providers - Providers Date of Admission: 07/19/18 12:30 Date of discharge: 07/20/18 Attending physician: COSME FREY Primary care physician: COSME FREY Hospitalization Reason for admission: other ( hypertension) Hospital course: Patient admitted for hypertension. She received MgSO4 therapy, BP's 110-130/50-80. She remained asymptomatic( No GARCIA, visual changes or abdominal pain). She desires discharge home. Condition at discharge: Good Disposition: DC-01 TO HOME OR SELFCARE - Discharge Diagnoses (1) hypertension Status: Acute Plan - Provider Discharge Summary Activity: no sex for 6 weeks Diet: other (Low salt) Instructions: other (Check your blood pressure 2-3 times a day. call the office if the top number is 160 or greater or the bottom number is 100 or greater) Additional instructions: [] Smoking cessation referral if applicable(refer to patient education folder for contact #) [] Refer to [facility]'s [facility] Book[facility] Call your doctor immediately for: * Fever > 100.5 * Heavy vaginal bleeding ( >1 pad per hour) * Severe persistent headache * Shortness of breath * Reddened, hot, painful area to leg or breast * Drainage or odor from incision. * Visual changes * Right upper abdominal pain * Swelling in your hands or face * Any concerns/problems * Keep incision clean and dry at all times and follow doctor's instructions regarding bathing/showering * You have been given a prescription for Labetalol. DO NOT take this medication until your provider tells you to take it. - Follow up plan Follow up: COSME FREY MD [Primary Care Provider] - 07/24/18 10:45 am ([place]) Forms: [facility] Discharge Summary, Discharge Signature Page
== END 2018-07-20 17:45 | disposition home or self-care (01) | DRG 776 ==
LOC: 3A 11:00 → UNDOADMIN 11:00 → LD 12:30 → OB 07-20 13:37
PROVIDERS: ADMIT Obstetrics & Gynecology; ATTEND Obstetrics & Gynecology
DX: O16.5 Unspecified maternal hypertension, complicating the puerperium (principal)
CPT/HCPCS: 36415; 80053; 81001; 83615; 83735; 84550; 85025; G0378; J3475; J7120